=== PATIENT | male | born 1945 | race Caucasian/White ===

== ENCOUNTER → 2018-02-28 10:42 | Outpatient (CLI) | payer MEDICARE, SELFPAY ==
[2018-02-28 12:10] LABS: Creatinine,Serum 2.87 mg/dL (0.70-1.30)
[2018-02-28 12:13] LABS: Creatinine,Urine Random 73 mg/dL (20-320)
[2018-02-28 12:45] LABS: Collection Time,Urine 24 hours; Creatinine 24 Hour,Urine 1825 mg/24hr (630-2500); Total Volume,Urine 2500 mL (250-2400)
[2018-02-28 12:46] LABS: Creatinine Clearance Urine 44.2 mL/min (85-125)
== END ==
PROVIDERS: Family Provider Internal Medicine Adolescent Medicine; Visit Provider Internal Medicine Adolescent Medicine
DX: N28.9 Disorder of kidney and ureter, unspecified (principal)
CPT/HCPCS: 36415; 82575

== ENCOUNTER → 2020-11-01 09:50 | Outpatient (CLI) | payer MEDICARE, SELFPAY ==
--- NOTE | 2020-11-01 10:03 | CA_ITS ---
APPROVED REPORT EXAM: Comprehensive 2D, Doppler, and color-flow Echocardiogram Yarn Conditioner: An Carmona CRT Ht: 6 ft 0 in Wt: 220lbs BSA: 2.22 BP: 120/82 mmHg Indications: Shortness of Breath, Obesity, Hyperlipidemia, Hypertension/HDD 2D Dimensions LVOT 2.01 cm (M/F) 1.5-2.5 M-Mode Dimensions RVDd 2.81 cm (0.9-2.6) LA Diam 3.71 cm (1.9-4.0) LVDd 4.73 cm (3.5-5.7) Ao Diam 3.47 cm (2.0-3.7) LVDs 2.41 cm (3.5-5.7) IVSd 1.81 cm (0.6-1.1) PWd 0.96 cm (0.6-1.1) EF (Teich) 80.40% FS 49.00% EDV (Teich) 103.90 mL ESV (Teich) 20.40 mL LV Diastology E Decel Time 150.00 (160-240 msec) E/A Ratio 0.62 MED E' 5.40 (< 7 cm/sec) MED A' 8.90 cm/s E'/MED E' Ratio 10.63 (>14) LAT E' 7.40 (<10 cm/sec) LAT A' 11.90 cm/s E/LAT E' Ratio 7.76 (>14) Aortic Valve LVOT Max 140.00 (70-110 cm/s) LVOT VTI 26.86 cm AoV Peak Martinez. 262.00 (50-130 cm/s) AO Peak GR. 27.50 mmHg AO Mean GR. 13.90 (<5 mmHg) AO VTI 58.31 (18-25 cm) JUNG (VTI) 1.46 (2.5-4.5 cm2) Mitral Valve MV E Max Martinez. 57.00 (40-130 cm/s) MV A Velocity 92.00 (40-130 cm/s) E/A Ratio 0.62 MV Decel. Time 150.00 (160-240 ms) MV PHT 44.00 ms Tricuspid Valve TR P. Velocity 247.00 cm/s Left Ventricle Left atrium is mildly enlarged, left ventricle is normal size, mild concentric left ventricular hypertrophy, visually estimated ejection fraction 55% with no regional wall motion abnormality, diastolic parameters are inconclusive. Right Ventricle Right atrium and right ventricle are normal size and contractility. Aortic Valve Aortic valve is thickened and calcified with mean gradient across valve of 17 mmHg, valve area 1.5 cm by represents mild aortic stenosis, there is no aortic insufficiency. Mitral Valve Mitral valve is grossly normal, there is mild mitral regurgitation. Tricuspid Valve Tricuspid valve grossly normal, there is mild tricuspid regurgitation, tricuspid regurgitation jet velocity is inadequate for calculation of the right ventricular systolic pressure. Pulmonic Valve Pulmonic valve is poorly visualized. Great Vessels Aortic root is normal size. Pericardium No significant pericardial effusion noted. Conclusion 1. Mildly enlarged left atrium, normal left ventricular size, mild concentric left ventricular hypertrophy, visually estimated ejection fraction 55% with no regional wall motion abnormality, diastolic parameters are inconclusive. 2. Thickened and calcified aortic valve with mean gradient across valve of 17 mmHg, valve area 1.5 cm??? represents mild aortic stenosis, there is no significant aortic insufficiency. 3. Mild mitral and tricuspid regurgitation. 4. No significant pericardial effusion noted. Electronically signed by : Ramy Quintanilla, 11/02/2020 06:55:40
== END ==
PROVIDERS: PCP Internal Medicine Adolescent Medicine; Visit Provider Internal Medicine Adolescent Medicine
DX: I50.22 Chronic systolic (congestive) heart failure (principal)
CPT/HCPCS: 93306

== ENCOUNTER → 2021-02-28 10:59 | Outpatient (CLI) | payer MEDICARE, SELFPAY ==
[2021-02-28 11:23] LABS: Basophils # 0.1 K/mm3 (0-0.2); Basophils % 1.2 % (0.1-2.0); Eosinophils # 0.4 K/mm3 (0.0-0.4); Eosinophils % 4.2 % (0.1-12.0); Hematocrit 49.6 % (42.0-52.0); Hemoglobin 14.9 g/dL (14.1-18.0); Lymphocytes # 1.4 K/mm3 (0.7-4.5); Lymphocytes % 14.3 % (10-50); Mean Corpuscular HGB Conc 30.1 g/dL (31.8-35.4); Mean Corpuscular Hemoglobin 29.8 pg (27.0-31.2); Mean Platelet Volume 8.9 fl (7.4-10.4); Monocytes # 0.7 K/mm3 (0.1-1.0); Neutrophils # 7.2 K/mm3 (1.8-7.8); Neutrophils % 73.2 % (37.0-80.0); Platelet Count 275 K/mm3 (142-424); Red Blood Count 5.02 M/mm3 (4.60-6.20); Red Cell Distribution Width 13.5 % (11.5-17.5); White Blood Count 9.8 K/mm3 (4.8-10.8)
[2021-02-28 11:35] LABS: Hemoglobin A1C 7.7 % (4.0-6.0)
[2021-02-28 11:40] LABS: Chloride 97 mmol/L (98-107)
[2021-02-28 11:41] LABS: Potassium 4.7 mmoL/L (3.5-5.1); Sodium 139 mmol/L (136-145)
[2021-02-28 11:43] LABS: Alanine Aminotransferase 74 U/L (12-78); Albumin Level 3.7 g/dl (3.5-5.0); Albumin/Globulin Ratio 1.3 (1.1-1.8); Alkaline Phosphatase 449 U/L (38-126); Anion Gap 13.7 mEq/L (5-15); Aspartate Amino Transferase 91 U/L (17-59); Bilirubin,Total 0.6 mg/dl (0.2-1.3); Blood Urea Nitrogen 33 mg/dl (9-20); Carbon Dioxide 33 mmol/L (22.0-30.0); Cholesterol 162 mg/dl (140-200); Estimated Glomerular Filt Rate 43 ml/min (>60); GFR (African American) 52 ML/MIN (>60); Globulin 2.8 g/dL (1.3-3.2); Total Protein,Serum 6.5 g/dl (6.3-8.2); Triglycerides 165 mg/dl (30-150); VLDL Cholesterol 33 mg/dL (0-40)
[2021-02-28 11:44] LABS: Calcium 9.8 mg/dl (8.4-10.2); Chol/HDL Ratio 3.1 (1-3.5); Glucose 88 mg/dl (74-100); HDL Cholesterol 53 mg/dl (40-60)
[2021-02-28 11:55] LABS: Direct LDL Cholesterol 77.32 mg/dL (100-129)
== END ==
PROVIDERS: Visit Provider Internal Medicine Adolescent Medicine
DX: I50.22 Chronic systolic (congestive) heart failure (principal); E78.5 Hyperlipidemia, unspecified; E11.9 Type 2 diabetes mellitus without complications; Z79.4 Long term (current) use of insulin
CPT/HCPCS: 36415; 80053; 80061; 83036; 85025

== ENCOUNTER 2021-03-15 12:23 | Observation (INO) | payer MEDICARE, SELFPAY ==
--- NOTE | 2021-03-15 | US_ITS ---
APPROVED REPORT Exam Type: Ankle to Brachial Index Mobile Ui Developer: AG/ROBIN Indications Micro-embolic event Non-healing Ulcer: Right Cyanosis History of Smoking Pre Right leg Intervention 03/16/21 Risk Factors History of PAD: Right Hypertension Hyperlipidemia Diabetes Pressures/Indices Right Indices Left Indices Brachial 142.00 mmHg Brachial 142.00 mmHg Low Thigh 139.00 mmHg 0.98 Low Thigh 145.00 mmHg 1.02 Calf 213.00 mmHg 1.50 Calf 154.00 mmHg 1.08 Ankle(PT) 88.00 mmHg 0.62 Ankle(PT) 150.00 mmHg 1.06 Ankle(DP) 83.00 mmHg 0.58 Ankle(DP) 138.00 mmHg 0.97 Digit 54.00 mmHg 0.38 Digit 155.00 mmHg 1.09 Findings RT SHANICE=0.62 LT SHANICE=1.06 RT TPI=0.38 LT TPI=1.09 Abnormal Right toe and Right calf pressures Conclusion RT SHANICE=0.62 LT SHANICE=1.06 RT TPI=0.38 LT TPI=1.09 Abnormal Right toe and Right calf pressures Moderate arterial disease on the right Electronically signed by : Piter Uribe MD 03/15/2021 17:40:49
[2021-03-15 12:50] VITALS: BMI 27.6
[2021-03-15 12:53] VITALS: BP 163/77; PULSE 66; RESP 16; TEMP 36.6; O2SAT 90
--- NOTE | 2021-03-15 12:59 | HMH.PNCARD ---
Subjective Date: 03/15/21 Time: 12:59 Principal diagnosis: PAD, non-healing ulcer Interval history: 75-year-old white male seen as a new patient in the office today with complaint of discolored fifth toe of the right foot and painful fourth toe. Patient does have an blister/ulcer on the bottom of the fifth toe. Pulses in the right foot are extremely weak compared with the bounding pulses of the left foot. Discussion was undertaken with the patient and Dr. Mata for admission with plans for lower extremity runoff in the a.m. Everyone is in agreement. Patient will be started on IV heparin along with IV and p.o. pain medication as needed. He will also need IV fluids due to mildly elevated creatinine at 1.6. Echocardiogram October this year shows normal ejection fraction with mild aortic stenosis with aortic valve area of 1.5 cm?. Exam Vital signs and Labs for Last 24 Hours: Temp Pulse Resp BP Pulse Ox 97.8 F 66 16 163/77 H 90 L 03/15/21 12:53 03/15/21 12:53 03/15/21 12:53 03/15/21 12:53 03/15/21 12:53 I & O for Last 24 hours: Intake & Output 03/13/21 03/14/21 03/15/21 03/16/21 11:59 11:59 11:59 11:59 Weight 204 lb 2 oz - Constitutional no acute distress - *Routine Respiratory Exam Present: CTA bilaterally - *Routine Cardiovascular Exam Present: RRR, murmur - *Routine Extremities Exam Absent: cyanosis, clubbing, edema Comments: Right foot cooler than left with decreased pulses compared to left. Right fifth toe is blue in color with nonhealing blister on the bottom of the foot. Painful to touch the right fourth toe with early ulcer noted. - *Routine Neurological Exam Present: alert, oriented X3 Progress Note: A&P (1) PAD (peripheral artery disease) Status: Chronic (2) Nonhealing ulcer of right lower extremity Status: Acute (3) Decreased pedal pulses Status: Acute (4) Diabetes mellitus Status: Acute (5) Discoloration of skin Status: Acute (6) HLD (hyperlipidemia) Status: Acute (7) HTN (hypertension) Status: Acute (8) Mild aortic stenosis by prior echocardiogram Status: Acute Assessment and Plan for All Diagnoses:: 1. Admission for PAD nonhealing ulcer with plans for lower extremity angiogram tomorrow. We will start the patient on IV fluids, IV heparin and combination of p.o. and IV pain medication as needed. Continue home medications of carvedilol, lisinopril and verapamil. Adjust medications as needed. 2. Diabetes mellitus, per Dr. Mata 3. Hypertension, controlled 4. Hyperlipidemia, on statin therapy 5. Mild aortic stenosis, asymptomatic
[2021-03-15 13:00] VITALS: PULSE 66; RESP 16; O2SAT 90
--- NOTE | 2021-03-15 13:02 | P.CONPHA_ITS ---
[facility] Pharmacy Heparin Dosing - Demographic Data Admission date:: 03/15/21 Date: 03/15/21 Time: 13:03 Allergies/Adverse Reactions: Allergies Allergy/AdvReac Type Severity Reaction Status Date / Time guaifenesin [From MUCINEX] Allergy Mild RASH ON Verified 03/15/21 13:06 BLE; PT STATES ROBITUSSIN IS FINE Height: 1.83 m Weight: 92.5 kg - Indication Medication therapy:: Heparin Patient Problems: Current Active Problems Mild aortic stenosis by prior echocardiogram (Acute) CKD (chronic kidney disease) stage 3, GFR 30-59 ml/min (Chronic) PAD (peripheral artery disease) (Chronic) Decreased pedal pulses (Acute) Diabetes mellitus (Acute) HTN (hypertension) (Acute) HLD (hyperlipidemia) (Acute) Discoloration of skin (Acute) Nonhealing ulcer of right lower extremity (Acute) CVA?: No Bleeding problem?: No Kidney disease?: No ND?: No Desired PTT range:: 50-70 seconds - Monitoring Dose Monitor 1 Date: 03/15/21 Time: 14:13 PTT Result:: 26.2 Infusion Rate:: 1,300 UNITS/HR Comment:: 7,000 UNIT BOLUS Dose Monitor 2 Date: 03/15/21 Time: 21:00 PTT Result:: 48.7 Infusion Rate:: INCREASE TO 1,500 UNIS/HR Comment:: 3,000 UNIT BOLUS Dose Monitor 3 Date: 03/16/21 Time: 03:00 PTT Result:: 81.4 Infusion Rate:: DECREASE TO 1,400 UNITS/HR Dose Monitor 4 Date: 03/16/21 Time: 09:00 PTT Result:: 65.7 Infusion Rate:: 1,400 UNITS/HR Comment:: [id number] Dose Monitor 5 Date: 03/16/21 Time: 15:00 Comment:: HEPARIN DRIP STOPPED BY CARDIOLOGY - Core Measures Is INR > or = 2 at discharge?: No Were Heparin and Warfarin started on the same day?: No If not, why?: HEPARIN DRIP STOPPED. PLAVIX AND ASPIRIN STARTED.
[2021-03-15 14:27] LABS: Adenovirus,PCR Not Detected (NotDetected); Bordetella Pertussis Not Detected (NotDetected); Chlamydophila Pneumoniae, PCR Not Detected (NotDetected); Coronavirus 19, PCR Not Detected (NotDetected); Coronavirus 229E Not Detected (NotDetected); Coronavirus NL63 Not Detected (NotDetected); Coronavirus OC43 Not Detected (NotDetected); Coronovirus HKU1,PCR Not Detected (NotDetected); Human Metapneumovirus Not Detected (NotDetected); Influenza A, PCR Not Detected (NotDetected); Influenza AH1, 2009 Not Detected (NotDetected); Influenza AH1, PCR Not Detected (NotDetected); Influenza AH3,PCR Not Detected (NotDetected); Influenza B, PCR Not Detected (NotDetected); Mycoplasma Pneumoniae, PCR Not Detected (NotDetected); Parainfluenza 1, PCR Not Detected (NotDetected); Parainfluenza 2, PCR Not Detected (NotDetected); Parainfluenza 3, PCR Not Detected (NotDetected); Parainfluenza 4, PCR Not Detected (NotDetected); Respiratory Syncytial Virus Not Detected (NotDetected); Rhinovirus/Enterovirus Not Detected (NotDetected)
--- NOTE | 2021-03-15 14:31 | P.CONPHA_ITS ---
[facility] Pharmacy VTE Monitoring - Patient Demographics Admission date: 03/15/21 Report Date: 03/15/21 Time: 14:31 Allergies/Adverse Reactions: Patient Allergies guaifenesin [From MUCINEX] Allergy (Mild, Verified 03/15/21 13:06) RASH ON BLE; PT STATES ROBITUSSIN IS FINE Height: 1.83 m Weight: 92.5 kg Patient Problems: Current Active Problems Mild aortic stenosis by prior echocardiogram (Acute) PAD (peripheral artery disease) (Chronic) Decreased pedal pulses (Acute) Diabetes mellitus (Acute) HTN (hypertension) (Acute) HLD (hyperlipidemia) (Acute) Discoloration of skin (Acute) Nonhealing ulcer of right lower extremity (Acute) - VTE Risk Was VTE Risk Assessment Performed: Yes VTE Score: 4 VTE Risk Level: Low Risk - Prophylaxis Types of VTE Prophylaxis: Pharmacological Location of Applied Device: Not Applicable Pharmacologic Type: Heparin (HEPARIN DRIP STARTED ON ADMISSION FOR PAD.)
[2021-03-15 14:39] LABS: Activated Partial Thrombo Time 26.2 seconds (22.8-30.6)
[2021-03-15 15:41] VITALS: BP 133/66; PULSE 58; RESP 16; TEMP 36.8; O2SAT 93
--- NOTE | 2021-03-15 17:45 | PC.NURSE ---
Pt has been pleasant and cooperative this shift. A&O X4. No complaints of pain. Pt is on room air with sats. >90%. Lungs CTA. No edema noted. Skin is C/D/I. RT foot pedal pulse noted to be diminished, but palpable. Pt ambulates independently to/from the bathroom and throughout the room. Pt has sat up in the chair for several hours. Urine is clear and yellow. No BM today. Appetite is good and pt eats the majority of every meal. 20 G peripheral IV in the RT wrist is patent and infusing NS @ 75 ML/HR + Heparin @ 1300 U/HR. VSS. Call light within reach. Will continue to monitor.
--- NOTE | 2021-03-15 18:24 | HMH.HP ---
*Admission Date: 03/15/21 *Chief complaint: cool painful foot/toe *History of present illness: 75 y/o male with 14 days of pain in his right small toe. Seen in our office today due to concern from the patient that he was having a gout flare with toe pain. He describes a throbbing pain in the tip of his small toe with occasional shooting pain every few minutes. The toe has turned purple and the pain is worsening. The pain keeps him from sleeping at night and he describes it as the worst pain he has ever felt. He also describes the arch of his foot as uncomfortable but not painful or numb. Pt is not aware of ever taking colchicine for his gout flares or for this recent episode of pain. He has been taking norco without relief. Denies claudication symptoms. Denies history of blood clots or recent cardiac procedures. Smoked 1.5 ppd previously but quit 10-15 years ago. Mr. Crowder was sent to cardiology office from our office. Concern for weak pulses in foot and ischemic toe. Cardiology recommended inpatient management and initiation of heparin drip. Patient admitted overnight with plan for runoff study of right lower extremity tomorrow. Of note echocardiogram obtained in October shows normal EF with mild aortic stenosis, aortic valve area of 1.5 cm?. Patient denies any chest pain, nausea, vomiting. Does complain of constipation. No fever, cough, shortness of breath. No pain in left leg or foot. [facility] History I have reviewed the patient's past medical history: Yes Medical History: Reports:: Congestive Heart Failure, Diabetes Mellitus Type 2, Hyperlipidemia, Hypertension, Lung Disease Denies:: Cancer, Diabetes Mellitus Type 1, Internal Pacemaker, MRSA, Seizures *Have you ever received a pneumonia vaccine?: Yes *Have you received a flu vaccine this season?: Yes Other Medical History: Denies: Blood Transfusion Reaction Laterality Cases: Bilateral: Tonsillectomy Other Surgeries: No: Pacemaker Amputation: No Fractures: No - *Social History Last grade of school completed: High school graduate Smoking Status: Former smoker Tobacco Type: cigarettes Smoking End Date: 2004 Alcohol Intake: never *Occupational Status:: retired Housing: house Household Members: spouse *Travel in the last 8 weeks: None Family Hx:: Heart Attack Review of Systems - Review of Systems Review of systems:: pertinent systems reviewed and negative unless documented below (14 point review of systems performed, pertinent positives and negatives as per HPI) Meds Home Medications Medication Instructions Recorded Confirmed Type Empagliflozin [Jardiance] 25 mg PO DAILY 01/07/19 03/15/21 History Furosemide [Lasix 40mg tab] 40 mg PO DAILY 01/07/19 03/15/21 History Glimepiride [Amaryl] 2 mg PO DAILY 01/07/19 03/15/21 History Insulin Degludec [Tresiba] 10 - 20 unit SQ DAILY 01/07/19 03/15/21 History Pravastatin Sodium 80 mg PO HS 01/07/19 03/15/21 History allopurinoL [Allopurinol 300mg 300 mg PO DAILY 01/07/19 03/15/21 History tablet] Cholecalciferol (Vitamin D3) 1,000 unit PO DAILY 03/15/21 03/15/21 History [Vitamin D3 1,000 Unit Cap] Colchicine 0.6 mg PO TIDP PRN 03/15/21 03/15/21 History Hydrocod/Acet 5/325 mg [Tamms 1 tab PO Q6HP PRN 03/15/21 03/15/21 History 5/325mg tablet] NIFEdipine [Nifedipine ER] 60 mg PO DAILY 03/15/21 03/15/21 History Sennosides/Docusate Sodium 2 each PO BIDP PRN 03/15/21 03/15/21 History [Senokot-S Tablet] Vitamin E 200 unit PO DAILY 03/15/21 03/15/21 History carvediloL [Carvedilol 6.25mg Tab] 6.25 mg PO BID 03/15/21 03/15/21 History lisinopriL [Lisinopril] 40 mg PO BID 03/15/21 03/15/21 History polyethylene glycoL 3350 [Miralax 17 gm PO BID 03/15/21 03/15/21 History Powder] Allergies Allergy/AdvReac Type Severity Reaction Status Date / Time guaifenesin [From MUCINEX] Allergy Mild RASH ON Verified 03/15/21 13:06 BLE; PT STATES ROBITUSSIN IS FINE Exam Vital signs and Labs for Las
[2021-03-15 20:00] VITALS: BP 123/65; PULSE 63; RESP 17; TEMP 36.7; O2SAT 90
[2021-03-15 22:14] LABS: Basophils % 0.5 % (0.1-2.0); Eosinophils # 0.4 K/mm3 (0.0-0.4); Eosinophils % 3.6 % (0.1-12.0); Hemoglobin 12.2 g/dL (14.1-18.0); Lymphocytes # 1.4 K/mm3 (0.7-4.5); Lymphocytes % 14.7 % (10-50); Mean Corpuscular HGB Conc 31.3 g/dL (31.8-35.4); Mean Corpuscular Hemoglobin 29.8 pg (27.0-31.2); Mean Corpuscular Volume 95.1 fl (80-94); Mean Platelet Volume 9.2 fl (7.4-10.4); Monocytes # 0.7 K/mm3 (0.1-1.0); Monocytes % 7.3 % (1.7-9.3); Neutrophils # 7.1 K/mm3 (1.8-7.8); Platelet Count 201 K/mm3 (142-424); Red Cell Distribution Width 13.8 % (11.5-17.5); White Blood Count 9.6 K/mm3 (4.8-10.8)
[2021-03-15 22:18] LABS: Alanine Aminotransferase 33 U/L (12-78); Albumin Level 2.8 g/dl (3.5-5.0); Albumin/Globulin Ratio 1.1 (1.1-1.8); Alkaline Phosphatase 687 U/L (38-126); Anion Gap 6.1 mEq/L (5-15); Aspartate Amino Transferase 68 U/L (17-59); Bilirubin,Total 0.4 mg/dl (0.2-1.3); Blood Urea Nitrogen 41 mg/dl (9-20); Calcium 8.1 mg/dl (8.4-10.2); Carbon Dioxide 32 mmol/L (22.0-30.0); Chloride 100 mmol/L (98-107); Creatinine Clearance Estimated 48 mL/min (50-200); Estimated Glomerular Filt Rate 37 ml/min (>60); GFR (African American) 45 ML/MIN (>60); Globulin 2.6 g/dL (1.3-3.2); Glucose 153 mg/dl (74-100); Potassium 4.1 mmoL/L (3.5-5.1); Sodium 134 mmol/L (136-145); Total Protein,Serum 5.4 g/dl (6.3-8.2)
[2021-03-15 22:23] LABS: Activated Partial Thrombo Time 48.7 seconds (22.8-30.6)
--- NOTE | 2021-03-15 23:07 | PC.NURSE ---
received call from [employer] watch, new orders received and carried out.
[2021-03-16] VITALS (25 sets, daily range): BP systolic 119–170; BP diastolic 53–109; PULSE 48–64; RESP 12–20; TEMP 36.3–36.7; O2SAT 90–100; BMI 27.5
--- NOTE | 2021-03-16 | IR_ITS ---
APPROVED REPORT Patient Location: Inpatient [facility] Channeler: NYDIA Blair RT (R) PROCEDURES Left femoral arterial access Catheter placement in the right common femoral artery Right common femoral artery antegrade angiogram with unilateral runoff to the right foot Stent deployment to the right popliteal artery Catheter placement in the right popliteal artery Right popliteal artery antegrade angiogram INDICATION Armen claudication class V, Poorly healing cyanotic and ulcerated right lower extremity digits, Peripheral artery disease, Subtotal occlusion of the right popliteal artery Informed consent was obtained prior to the procedure. COMPLICATIONS None Estimated Blood Loss: Less than 10 mls TECHNIQUE 1% lidocaine used to anesthetize the left femoral groin. The left femoral artery was accessed via the Seldinger technique. A 5 Malaysian sheath was placed in the right femoral artery and under fluoroscopic guidance a rim catheter was advanced into the distal abdominal aorta. An advantage wire was then placed into the right superficial femoral artery under fluoroscopic guidance and the rim catheter was advanced to the right common femoral artery where unilateral runoff was performed. Following this the rim catheter was removed and the 5 Malaysian sheath was exchanged for a 6 Malaysian destination sheath. Therapeutic heparin was administered giving a therapeutic ACT. A trailblazer was required to negotiate the wire through the subtotal occlusion. A 4 mm x 40 mm balloon was deployed to predilate the stenosis. Following this a 5 mm x 80 mm self-expanding stent was placed in the popliteal artery. A 5 mm x 40 mm balloon was then deployed multiple times to post dilate however the dense calcification prohibited full expansion of the stent. A 6 mm x 20 mm balloon was then deployed up to 24 janie in the heavily and densely calcified area which would not allow the stent to be fully deployed. A 7 mm x 20 mm balloon was then placed in the stenotic area within the popliteal artery and deployed size 22 janie. This did provide better expansion of the porcelain/densely calcified vessel and provided excellent inline flow with three-vessel runoff distally. After achieving satisfactory angiographic results it was felt any further dilatation of this vessel would almost certainly create rupture and thereby create a severe complication. With excellent inline flow into the distal vessels the apparatus was removed the groin was reprepped closure changed sheath was removed good hemostasis was achieved using Perclose device patient was transferred to the postop putting in stable condition ANGIOGRAPHIC RESULTS The right common femoral artery is densely calcified with 50% eccentric stenosis. The right profunda femoris artery is widely patent. The right superficial femoral artery is widely patent in the proximal segment with mild to moderate mid vessel calcifications creating 30 to 40% Bryson's canal. The right popliteal artery is a large-caliber vessel and severely densely calcified at the pregeniculate level creating subtotal occlusion. Three-vessel runoff is present below the right popliteal artery with 50% stenosis in the proximal anterior tibialis artery and diffuse moderate plaque throughout all 3 vessels IMPRESSION Subtotal occlusion of the right popliteal artery which is severely and densely calcified Successful percutaneous revascularization of the right popliteal artery critical limb threatening disease reduced to 10 to 20% with 1 self-expanding stent Persistent moderate and densely calcified right common femoral artery stenosis PLAN 1. Aspirin and Plavix 2. LDL less than 55 3. Physical therapy
--- NOTE | 2021-03-16 02:12 | PC.NURSE ---
at 2029 patient complaining that right foot is beginning to hurt again, pain medication not due until 0000. dr. castro paged for additional pain medication. patient only wanted to take 1 pill at that 4 hr corrie, 1 hour later patient complained that pain medication had not worked, additional tab of ordered 2 tabs given. patient currently resting.
[2021-03-16 03:37] LABS: Alanine Aminotransferase 36 U/L (12-78); Albumin/Globulin Ratio 1.1 (1.1-1.8); Alkaline Phosphatase 720 U/L (38-126); Anion Gap 7.3 mEq/L (5-15); Aspartate Amino Transferase 61 U/L (17-59); Bilirubin,Total 0.6 mg/dl (0.2-1.3); Blood Urea Nitrogen 40 mg/dl (9-20); Calcium 8.4 mg/dl (8.4-10.2); Carbon Dioxide 31 mmol/L (22.0-30.0); Chloride 101 mmol/L (98-107); Creatinine Clearance Estimated 51 mL/min (50-200); Estimated Glomerular Filt Rate 40 ml/min (>60); GFR (African American) 48 ML/MIN (>60); Globulin 2.8 g/dL (1.3-3.2); Glucose 87 mg/dl (74-100); Potassium 4.3 mmoL/L (3.5-5.1); Sodium 135 mmol/L (136-145); Total Protein,Serum 5.8 g/dl (6.3-8.2)
[2021-03-16 03:41] LABS: C-Reactive Protein 103.5 mg/L (0-4)
[2021-03-16 03:55] LABS: Activated Partial Thrombo Time 81.4 seconds (22.8-30.6)
[2021-03-16 04:04] LABS: Erythrocyte Sedimentation Rate 36 mm/hr (0-20)
--- NOTE | 2021-03-16 04:22 | PC.NURSE ---
gave two lortabs at 0300, patient continues to have pain that he states he can't take. right little toe darker in color with tip black, warm to touch. pulses continue to be thready. matthew hankins paged, new orders received.
[2021-03-16 06:36] LABS: POC Glucose,Bedside 80 (70-110)
--- NOTE | 2021-03-16 07:22 | XR_ITS ---
PROCEDURE: XR FOOT RT MIN 3V CLINICAL INDICATION: R 5th toe ischemic COMPARISON: XA CL BOLUS EMERITA UNILAT AORTA from 03/16/2021 FINDINGS: No acute fracture or dislocation. Focal decreased density is present involving the distal aspect of the distal phalanges of the 4th and 5th toes. There is generalized vascular calcification and a small Achilles enthesophyte. The joint spaces are well-preserved. No significant degenerative/arthritic changes. No erosive changes evident. Other findings:None. IMPRESSION: Decreased density of the tuft of the distal phalanx of the 4th and 5th toes. This is of uncertain clinical significance. Focal osteopenia can be seen with osteomyelitis. No definite cortical destruction is evident however, the bony resolution is somewhat limited. If there is suspicion for osteomyelitis then would suggest dedicated toe x-ray for further evaluation. MRI without and with contrast may also be beneficial if clinically warranted. Dictated by: Piter Uribe MD 03/16/2021 08:44 Piter Uribe MD in [place] 03/16/2021 08:44
[2021-03-16 08:15] LABS: Basophils # 0.1 K/mm3 (0-0.2); Basophils % 0.7 % (0.1-2.0); Eosinophils # 0.5 K/mm3 (0.0-0.4); Hematocrit 40.3 % (42.0-52.0); Hemoglobin 12.4 g/dL (14.1-18.0); Lymphocytes # 1.2 K/mm3 (0.7-4.5); Lymphocytes % 13.6 % (10-50); Mean Corpuscular HGB Conc 30.8 g/dL (31.8-35.4); Mean Corpuscular Hemoglobin 29.5 pg (27.0-31.2); Mean Corpuscular Volume 95.8 fl (80-94); Mean Platelet Volume 9.9 fl (7.4-10.4); Monocytes # 0.7 K/mm3 (0.1-1.0); Monocytes % 7.4 % (1.7-9.3); Neutrophils # 6.4 K/mm3 (1.8-7.8); Neutrophils % 72.3 % (37.0-80.0); Platelet Count 221 K/mm3 (142-424); White Blood Count 8.8 K/mm3 (4.8-10.8)
--- NOTE | 2021-03-16 08:22 | HMH.ACPN2 ---
Internal Medicine - PN: Subj *Date: 03/16/21 *Time: 08:22 Interval history: Patient notes that he feels a little bit better although occasionally his right pain in the foot is significant and excruciating. Exam Vital signs and Labs for Last 24 Hours: Temp Pulse Resp BP Pulse Ox 97.9 F 55 L 20 143/57 H 91 L 03/16/21 08:00 03/16/21 08:00 03/16/21 08:00 03/16/21 08:00 03/16/21 08:00 Laboratory Results - last 24 hr 03/15/21 12:14: Chlamy pneumoniae PCR Not detected, Adenovirus (PCR) Not detected, B. pertussis DNA (PCR) Not detected, Coronavirus OC43 (PCR) Not detected, Coronavirus HKU1 (PCR) Not detected, Coronavirus 229E (PCR) Not detected, SARS-CoV-2 (PCR) Not detected, Coronavirus NL63 (PCR) Not detected, Human Metapneumovir PCR Not detected, Influenza A (H1) PCR Not detected, Influ A (H1N1/09) PCR Not detected, Influenza A (H3) PCR Not detected, Influenza Type A (PCR) Not detected, Influenza Type B (PCR) Not detected, M. pneumoniae (PCR) Not detected, Parainfluenza 1 (PCR) Not detected, Parainfluenza 2 (PCR) Not detected, Parainfluenza 3 (PCR) Not detected, Parainfluenza 4 (PCR) Not detected, RSV (PCR) Not detected, Entero/Rhino (PCR) Not detected 03/15/21 14:13: APTT 26.2 03/15/21 21:37: APTT 48.7 H D 03/15/21 21:37: WBC 9.6, RBC 4.10 L, Hgb 12.2 L, Hct 39.0 L, MCV 95.1 H, MCH 29.8, MCHC 31.3 L, RDW 13.8, Plt Count 201, MPV 9.2, Neut % (Auto) 74.0, Lymph % (Auto) 14.7, Bledsoe % (Auto) 7.3, Eos % (Auto) 3.6, Baso % (Auto) 0.5, Neut # (Auto) 7.1, Lymph # (Auto) 1.4, Bledsoe # (Auto) 0.7, Eos # (Auto) 0.4, Baso # (Auto) 0.0 03/15/21 21:37: Sodium 134 L, Potassium 4.1, Chloride 100, Carbon Dioxide 32 H, Anion Gap 6.1, BUN 41 H, Creatinine 1.80 H, Estimated Creat Clear 48, Estimated GFR 37 L, Est GFR ( Amer) 45 L, Glucose 153 H, Calcium 8.1 L, Total Bilirubin 0.4, AST 68 H, ALT 33, Alkaline Phosphatase 687 H, Total Protein 5.4 L, Albumin 2.8 L, Globulin 2.6, Albumin/Globulin Ratio 1.1 03/16/21 03:10: APTT 81.4 H* D 03/16/21 03:10: ESR 36 H 03/16/21 03:10: C-Reactive Protein 103.5 H 03/16/21 03:10: Sodium 135 L, Potassium 4.3, Chloride 101, Carbon Dioxide 31 H, Anion Gap 7.3, BUN 40 H, Creatinine 1.70 H, Estimated Creat Clear 51, Estimated GFR 40 L, Est GFR ( Amer) 48 L, Glucose 87 D, Calcium 8.4, Total Bilirubin 0.6, AST 61 H, ALT 36, Alkaline Phosphatase 720 H, Total Protein 5.8 L, Albumin 3.0 L, Globulin 2.8, Albumin/Globulin Ratio 1.1 03/16/21 06:27: POC Glucose 80 03/16/21 08:05: WBC 8.8, RBC 4.20 L, Hgb 12.4 L, Hct 40.3 L, MCV 95.8 H, MCH 29.5, MCHC 30.8 L, RDW 14.0, Plt Count 221, MPV 9.9, Neut % (Auto) 72.3, Lymph % (Auto) 13.6, Bledsoe % (Auto) 7.4, Eos % (Auto) 6.0, Baso % (Auto) 0.7, Neut # (Auto) 6.4, Lymph # (Auto) 1.2, Bledsoe # (Auto) 0.7, Eos # (Auto) 0.5 H, Baso # (Auto) 0.1 I & O for Last 24 hours: Intake & Output 03/13/21 03/14/21 03/15/21 03/16/21 11:59 11:59 11:59 11:59 Intake Total 2549 / 2549 Output Total 450 / 450 Balance 2098 Weight 203 lb 2 oz Narrative: Patient is alert, pleasant. Alert, oriented. Lungs have good air movement, heart rate regular. Abdomen soft, Right foot has no pulses on the dorsum except detectable by Doppler. Right pinky toe is purple, extremely tender and cold. No skin rash otherwise. Neurologically intact. Oropharynx clear. Assessment and Plan (1) PAD (peripheral artery disease) Status: Chronic Category: Medical Code(s): I73.9 - Peripheral vascular disease, unspecified (2) Nonhealing ulcer of right lower extremity Status: Acute Qualifiers: Non-pressure ulcer stage: unspecified non-pressure ulcer stage Qualified Code(s): L97.919 - Non-pressure chronic ulcer of unspecified part of right lower leg with unspecified severity Category: Medical Code(s): L97.919 - Non-pressure chronic ulcer of unspecified part of right lower leg with unspecified severity (3) Decreased pedal pulses Status: Acute Category: Medical Code(s
[2021-03-16 08:29] LABS: Activated Partial Thrombo Time 65.7 seconds (22.8-30.6)
--- NOTE | 2021-03-16 08:31 | HMH.ORTHOCON ---
*Admission Date: 03/15/21 <Kamilah Riggs - 03/16/21 08:48> *Reason for consult:: Right fifth ischemic toe <Kamilah Riggs - 03/16/21 08:48> *History of present illness: 75 y/o male with 14 days of pain in his right small toe. Seen in our office today due to concern from the patient that he was having a gout flare with toe pain. He describes a throbbing pain in the tip of his small toe with occasional shooting pain every few minutes. The toe has turned purple and the pain is worsening. The pain keeps him from sleeping at night and he describes it as the worst pain he has ever felt. He also describes the arch of his foot as uncomfortable but not painful or numb. Pt is not aware of ever taking colchicine for his gout flares or for this recent episode of pain. He has been taking norco without relief. Denies claudication symptoms. Denies history of blood clots or recent cardiac procedures. Smoked 1.5 ppd previously but quit 10-15 years ago. Mr. Crowder was sent to cardiology office from our office. Concern for weak pulses in foot and ischemic toe. Cardiology recommended inpatient management and initiation of heparin drip. Patient admitted overnight with plan for runoff study of right lower extremity tomorrow. Of note echocardiogram obtained in October shows normal EF with mild aortic stenosis, aortic valve area of 1.5 cm?. Patient denies any chest pain, nausea, vomiting. Does complain of constipation. No fever, cough, shortness of breath. No pain in left leg or foot. [facility] History I have reviewed the patient's past medical history: Yes Medical History: Reports:: Congestive Heart Failure, Diabetes Mellitus Type 2, Hyperlipidemia, Hypertension, Lung Disease Denies:: Cancer, Diabetes Mellitus Type 1, Internal Pacemaker, MRSA, Seizures *Have you ever received a pneumonia vaccine?: Yes *Have you received a flu vaccine this season?: Yes Other Medical History: Denies: Blood Transfusion Reaction Laterality Cases: Bilateral: Tonsillectomy Other Surgeries: No: Pacemaker Amputation: No Fractures: No - *Social History Last grade of school completed: High school graduate Smoking Status: Former smoker Tobacco Type: cigarettes Smoking End Date: 2004 Alcohol Intake: never *Occupational Status:: retired Housing: house Household Members: spouse *Travel in the last 8 weeks: None Family Hx:: Heart Attack Podiatry consult for Right foot ischemic toe. Patient states it is from a gout flare up. He denies any injuries or trauma to the toe. This has been going on now for 2 weeks. The toe is purple but no breaks noted in the skin. Pedal pulses B/L DP/PT were weakly palpable. Feet are cool, and pale in color. Patient has been NPO for the consult and is also scheduled for a runoff today at 10:00 am. The patient had Right foot xrays done and depending on if Osteomyelitis is present the patient was consented for a Right 5th toe amputation and Incision and Drainage of any non-viable soft tissue and bone, bone biopsies. <Kamilah Riggs 03/16/21 08:48> [facility] History I have reviewed the patient's past medical history: Yes <Leia Morocho - 03/16/21 15:56> Medical History: Reports:: Congestive Heart Failure, Diabetes Mellitus Type 2, Hyperlipidemia, Hypertension, Lung Disease Denies:: Cancer, Diabetes Mellitus Type 1, Internal Pacemaker, MRSA, Seizures <Kamilah Riggs 03/16/21 08:48> *Have you ever received a pneumonia vaccine?: Yes <Kamilah Riggs 03/16/21 08:48> *Have you received a flu vaccine this season?: Yes <Kamilah Riggs 03/16/21 08:48> Other Medical History: Denies: Blood Transfusion Reaction <Kamilah Riggs 03/16/21 08:48> Laterality Cases: Bilateral: Tonsillectomy <Kamilah Riggs 03/16/21 08:48> Other Surgeries: No: Pacemaker <Kamilah Riggs 03/16/21 08:48> Amputation: No <Kamilah Riggs 03/16/21 08:48> Fractures: No <Kamilah Riggs 03/16/21 08:48> - *Social History Last grade of school completed: High
--- NOTE | 2021-03-16 09:07 | HMH.PNCARD ---
Subjective Date: 03/16/21 Time: 09:00 Principal diagnosis: PAD, non-healing ulcer Interval history: 75-year-old male admitted to [facility] after being seen in cardiology office. Patient had complaints of discolored fifth toe of the right foot and painful fourth toe. Patient does have an blister/ulcer on the bottom of the fifth toe. Pulses in the right foot are extremely weak compared with the bounding pulses of the left foot. Podiatry has been consulted due to blister and ulcer on bottom of the fifth toe. Patient is scheduled for a bilateral lower extremity runoff this a.m. to determine extent of PAD. Discussed risk and benefits of undergoing bilateral lower extremity runoff with patient. Patient verbalized understanding and is agreeable to procedure. Patient was started on IV heparin along with IV and p.o. pain medication as needed. Creatinine level this a.m. was noted as 1.70 with a BUN 40. C-reactive protein was noted as elevated. Pending on the results of the bilateral lower extremity runoff, medication and therapy treatment changes may be recommended. Discussed plan of care with Dr. Hollins. Orders by Dr. Hollins. Patient is scheduled for a bilateral lower extremity runoff to determine extent of PAD. Podiatry was consulted due to blister and ulcer noted on the bottom of the fifth toe. Pending on the results of the bilateral lower extremity runoff, medication and changes to therapy treatments may be recommended. Please notify cardiology of any changes in patient status. Thank you for allowing cardiology to participate in the care of this patient. Exam Vital signs and Labs for Last 24 Hours: Temp Pulse Resp BP Pulse Ox 97.9 F 55 L 20 143/57 H 91 L 03/16/21 08:00 03/16/21 08:00 03/16/21 08:00 03/16/21 08:00 03/16/21 08:00 Laboratory Results - last 24 hr 03/15/21 12:14: Chlamy pneumoniae PCR Not detected, Adenovirus (PCR) Not detected, B. pertussis DNA (PCR) Not detected, Coronavirus OC43 (PCR) Not detected, Coronavirus HKU1 (PCR) Not detected, Coronavirus 229E (PCR) Not detected, SARS-CoV-2 (PCR) Not detected, Coronavirus NL63 (PCR) Not detected, Human Metapneumovir PCR Not detected, Influenza A (H1) PCR Not detected, Influ A (H1N1/09) PCR Not detected, Influenza A (H3) PCR Not detected, Influenza Type A (PCR) Not detected, Influenza Type B (PCR) Not detected, M. pneumoniae (PCR) Not detected, Parainfluenza 1 (PCR) Not detected, Parainfluenza 2 (PCR) Not detected, Parainfluenza 3 (PCR) Not detected, Parainfluenza 4 (PCR) Not detected, RSV (PCR) Not detected, Entero/Rhino (PCR) Not detected 03/15/21 14:13: APTT 26.2 03/15/21 21:37: APTT 48.7 H D 03/15/21 21:37: WBC 9.6, RBC 4.10 L, Hgb 12.2 L, Hct 39.0 L, MCV 95.1 H, MCH 29.8, MCHC 31.3 L, RDW 13.8, Plt Count 201, MPV 9.2, Neut % (Auto) 74.0, Lymph % (Auto) 14.7, [place] % (Auto) 7.3, Eos % (Auto) 3.6, Baso % (Auto) 0.5, Neut # (Auto) 7.1, Lymph # (Auto) 1.4, [place] # (Auto) 0.7, Eos # (Auto) 0.4, Baso # (Auto) 0.0 03/15/21 21:37: Sodium 134 L, Potassium 4.1, Chloride 100, Carbon Dioxide 32 H, Anion Gap 6.1, BUN 41 H, Creatinine 1.80 H, Estimated Creat Clear 48, Estimated GFR 37 L, Est GFR ( Amer) 45 L, Glucose 153 H, Calcium 8.1 L, Total Bilirubin 0.4, AST 68 H, ALT 33, Alkaline Phosphatase 687 H, Total Protein 5.4 L, Albumin 2.8 L, Globulin 2.6, Albumin/Globulin Ratio 1.1 03/16/21 03:10: APTT 81.4 H* D 03/16/21 03:10: ESR 36 H 03/16/21 03:10: C-Reactive Protein 103.5 H 03/16/21 03:10: Sodium 135 L, Potassium 4.3, Chloride 101, Carbon Dioxide 31 H, Anion Gap 7.3, BUN 40 H, Creatinine 1.70 H, Estimated Creat Clear 51, Estimated GFR 40 L, Est GFR ( Amer) 48 L, Glucose 87 D, Calcium 8.4, Total Bilirubin 0.6, AST 61 H, ALT 36, Alkaline Phosphatase 720 H, Total Protein 5.8 L, Albumin 3.0 L, Globulin 2.8, Albumin/Globulin Ratio 1.1 03/16/21 06:27: POC Glucose 80 03/16/21 08:05: APTT 65.7 H* D 03/16/21 08:05: WBC 8.8, RBC 4.20 L, Hgb 12.4 L, Hct 40.3 L, MCV 95.8
[2021-03-16 12:11] LABS: POC Glucose,Bedside 71 (70-110)
--- NOTE | 2021-03-16 13:15 | P.PN_ITS ---
[facility] Anesthesia Checklist - Patient Identification Patient Identification: Arm Band - Structural Data Admitted From: Inpatient Planned Operative Procedure/s: 5th toe amputation Consent for Planned Operative Procedure(s) Verified: Yes - NPO Status Verified Time NPO: 00:00 - Additional verifications Anesthesia Reactions: No Hx Blood Transfusions: No Blood Transfusion Reaction: No - Airway Assessment C-Spine Mobility Assessed: Yes TMJ Mobility Assessed: Yes Dentition: Edentulous - Neurological Assessment Level of Consciousness: Awake Hx Seizures: No Numbness or tingling in extremities: No - Anesthesia Plan Anesthesia Risk discussed: Yes Anesthesia Plan: Verified ASA Class: III Anesthesia Type: General [facility] History I have reviewed the patient's past medical history: Yes Medical History: Reports:: Congestive Heart Failure, Chronic Obstructive Pulmonary Disease (COPD), Diabetes Mellitus Type 2, Hyperlipidemia, Hypertension, Lung Disease Denies:: Cancer, Diabetes Mellitus Type 1, Internal Pacemaker, MRSA, Seizures *Have you ever received a pneumonia vaccine?: Yes *Have you received a flu vaccine this season?: Yes Other Medical History: Reports: Other (Gout). Denies: Blood Transfusion Reaction Anesthesia experience/problems:: None Laterality Cases: Bilateral: Tonsillectomy Other Surgeries: No: Pacemaker Amputation: No Fractures: No - *Social History Last grade of school completed: High school graduate Smoking Status: Former smoker Tobacco Type: cigarettes Smoking End Date: 2004 Alcohol Intake: never Substance Use Type: denies use *Occupational Status:: retired Housing: house Household Members: spouse *Travel in the last 8 weeks: None Family Hx:: Heart Attack
[2021-03-16 14:32] LABS: CATHL Activated Clotting Time 262 SEC (74-125)
--- NOTE | 2021-03-16 15:08 | XR_ITS ---
PROCEDURE: XR FOOT RT MIN 3V CLINICAL INDICATION: Post op amp COMPARISON: CR XR FOOT RT MIN 3V from 03/16/2021 FINDINGS: Status post amputation at the PIP joint of the 5th toe. Bandage artifact is present. There is good alignment. The joint spaces are well-preserved. No significant degenerative/arthritic changes. No erosive changes evident. Other findings:None. IMPRESSION: Status post amputation at the PIP joint of the 5th toe Dictated by: Piter Uribe MD 03/16/2021 16:01 Piter Uribe MD in OV 03/16/2021 16:01
--- NOTE | 2021-03-16 15:09 | HMH.ANESI ---
[facility] Anesthesia Record Part I Intake, IV Amount: 500 Estimated blood loss (mL): 0 Urine output (mL): 0 Blood Pressure: 125/58 SaO2: 96 Pulse Rate: 56 Respiratory Rate: 12 Temperature: 97.6 F Patient is:: Awake, Stable Stable to PACU at:: 15:05
--- NOTE | 2021-03-16 15:10 | HMH.OPNOTE ---
Date of procedure: 03/16/21 Pre-op Diagnosis:: 1. Right 5th ischemic toe 2. Right 5th toe gangrene 3. Right diabetic ulcer 5th toe 4. Gout Post-op Diagnosis:: Same Procedure performed:: 1. Right partial 5th toe amputation Surgeon:: Leia Morocho DPM [employer]NANCE WORKER:: Rakesh Allen Anesthesia: GETA Estimated blood loss (mL): 5 Clinical Note:: Patient is a 75-year-old diabetic male who was admitted for critical limb ischemia. He had a run off today 03/16/2021 with cardiology. Patient reports ischemic changes to the right fifth toe for over 2 weeks now. He does have a history of gout. He denies any purulent drainage. Patient reports pain localized to the tip of the fifth toe. Concern for osteomyelitis of the distal fifth toe. We discussed conservative versus surgical treatment options. Conservative treatment options include local wound care, oral and IV antibiotics, change in shoe wear, taping/padding, and off-loading. Discussed that patient would benefit from a wider and deeper shoe wear to accommodate the deformity. We discussed surgical intervention for amputation of the fifth toe. Patient understands that there is a chance that the toes can migrate to fill the gap or the foot may change shape after surgery. Patient also understands that they could have wound healing complications including delayed healing and infection. We discussed that if the wound does not heal, it is possible that they may need a more proximal amputation and could result in further loss of digits, loss of partial foot or loss of leg. We discussed the risks and benefits in great detail. Other surgical risks include: prolonged pain and swelling, further infection requiring oral or IV antibiotics, delay in healing of soft tissue or bone, nerve or blood vessel damage, CRPS/RSD, DVT, anesthesia complications, and even . All questions answered. Patient verbalized understanding. Consent obtained. Operative findings:: Right fifth toe ischemic gangrenous changes to the distal toe tip. Skin sloughing with the toenail partially avulsed off the nail bed. Toe has a purplish blackish discoloration. Distal phalanx was soft and yellow in appearance. Middle phalanx had cortical changes and sclerosis noted with some osteopenia. The proximal phalanx head was intact with no obvious signs of osteomyelitis. No purulence, odor or drainage noted. Operative note:: On this date and time patient was deemed an appropriate surgical candidate. With informed consent signed, the patient was taken to the operating theater. The patient was positioned supine. General anesthesia was induced. No tourniquet used. Ancef 2g IV infused. Right partial 5th toe/digit amputation: The right lower extremity was prepped and drapped in normal sterile fashion. Attention was directed to the fifth toe where ischemic gangrenous changes were noted to the distal toe tip. The toenail was partially avulsed off the nail bed. There is skin sloughing of the distal and middle phalanx. The skin proximal to the fifth MPJ was intact with no sloughing or blistering noted. A fish mouth incision was mapped out. Utilizing a 15 blade dissection was carried down sharply to the level of the 5th distal phalanx bone around the 5th DIPJ which was disarticulated from the middle phalanx. The distal phalanx bone was soft and crumbly and had a slight malodor to it. The distal toe including skin, subq, deep fascia, toenail, and distal phalanax bone was sent for bone/tissue culture. The middle phalanx had some cortical erosions and sclerosis noted. It was disarticulated from the PIP J and was sent for bone biopsy for pathology. Attention was then directed to the proximal phalanx. The head was intact with no cortical erosions, discoloration or obvious signs of osteomyelitis. Next bacitracin irrigation was used to flush the wound. The wound was reexplored and no further signs of infection noted. Bleeding controlled. No vessels ligated with electrocautery or t
[2021-03-16 16:48] LABS: POC Glucose,Bedside 115 (70-110)
--- NOTE | 2021-03-16 18:27 | PC.NURSE ---
Pt has slept majority of the time since being back up to the floor. Pt has required o2 at times while being asleep but is currently on RA. Pt has reported no pain this shift. No other acute changes or complaints. Will continue to monitor.
[2021-03-16 21:23] LABS: POC Glucose,Bedside 176 (70-110)
[2021-03-17] VITALS: BP 158/56; PULSE 56; RESP 19; TEMP 36.7; O2SAT 91
[2021-03-17 04:00] VITALS: BP 124/61; PULSE 55; RESP 17; TEMP 36.5; O2SAT 94
[2021-03-17 05:20] LABS: POC Glucose,Bedside 103 (70-110)
[2021-03-17 05:48] VITALS: BMI 28.1
[2021-03-17 06:37] LABS: Basophils # 0.1 K/mm3 (0-0.2); Basophils % 0.7 % (0.1-2.0); Eosinophils # 0.5 K/mm3 (0.0-0.4); Eosinophils % 5.6 % (0.1-12.0); Hemoglobin 11.8 g/dL (14.1-18.0); Lymphocytes # 1.4 K/mm3 (0.7-4.5); Lymphocytes % 15.6 % (10-50); Mean Corpuscular HGB Conc 30.2 g/dL (31.8-35.4); Mean Corpuscular Hemoglobin 29.8 pg (27.0-31.2); Mean Corpuscular Volume 98.6 fl (80-94); Monocytes # 0.8 K/mm3 (0.1-1.0); Monocytes % 8.7 % (1.7-9.3); Neutrophils # 6.3 K/mm3 (1.8-7.8); Neutrophils % 69.5 % (37.0-80.0); Platelet Count 205 K/mm3 (142-424); Red Blood Count 3.95 M/mm3 (4.60-6.20); White Blood Count 9.1 K/mm3 (4.8-10.8)
[2021-03-17 06:44] LABS: Chloride 104 mmol/L (98-107); Potassium 4.6 mmoL/L (3.5-5.1); Sodium 137 mmol/L (136-145)
[2021-03-17 06:47] LABS: Anion Gap 7.6 mEq/L (5-15); Blood Urea Nitrogen 34 mg/dl (9-20); Carbon Dioxide 30 mmol/L (22.0-30.0); Creatinine Clearance Estimated 44 mL/min (50-200); Estimated Glomerular Filt Rate 33 ml/min (>60); GFR (African American) 40 ML/MIN (>60)
[2021-03-17 06:48] LABS: Calcium 7.8 mg/dl (8.4-10.2); Glucose 126 mg/dl (74-100)
--- NOTE | 2021-03-17 07:58 | HMH.ORTHPN ---
Subjective Date: 03/17/21 Time: 07:35 Principal diagnosis: PAD, non-healing ulcer Interval history: Patient resting comfortably sitting up eating breakfast. He denies nausea/vomiting, fever/chills, shortness of breath and chest pain. Patient reports pain to the right foot, but has improved. PN: Obj Ex Vital signs: Temp Pulse Resp BP Pulse Ox 97.7 F 55 L 17 124/61 94 L 03/17/21 04:00 03/17/21 04:00 03/17/21 04:00 03/17/21 04:00 03/17/21 04:00 - Constitutional no acute distress - Routine HEENT Exam Head: Present: normocephalic Eye: Present: EOMI ENT: Present: mucous membranes moist - Routine Respiratory Exam Absent: respiratory distress - Routine Abdominal Exam Present: soft - Routine Extremities Exam Present: pulses intact, amputation (Right fifth partial toe amputation) - Routine Skin Exam Present: wounds (Right fifth toe amputation site has sutures clean dry and intact. Plantar skin appears raw secondary to removing skin sloughing and blistering yesterday. No black ischemic toe noted. No ascending cellulitis, purulent drainage or malodor noted.) - Routine Neurological Exam Present: alert, oriented X3 Progress Note: A&P (1) PAD (peripheral artery disease) Status: Chronic (2) Nonhealing ulcer of right lower extremity Status: Acute (3) Decreased pedal pulses Status: Acute (4) Diabetes mellitus Status: Acute (5) Discoloration of skin Status: Acute (6) HLD (hyperlipidemia) Status: Acute (7) HTN (hypertension) Status: Acute (8) Mild aortic stenosis by prior echocardiogram Status: Acute (9) CKD (chronic kidney disease) stage 3, GFR 30-59 ml/min Status: Chronic (10) Gout Status: Acute (11) Ischemic ulcer of toe of right foot Status: Acute Assessment and Plan for All Diagnoses:: 03/16/21, s/p right partial 5th ray amputation POD #1 Labs, 03/15/21: wbc 9.6, glucose 153, creatinine 1.8, gfr 37 Labs, 03/16/21: wbc 8.8, esr 36, crp 103.5, glucose 87, creatinine 1.7, gfr 40 Overall the right fifth toe is stable with less discoloration. No new gangrenous changes. Skin cleansed with Betadine. A new Betadine soaked gauze dry sterile dressing was applied to the right foot. Educated the patient on gout, diabetes and routine foot care. Plan: Patient is to maintain dressing clean dry and intact. Continue antibiotics: Clinda 900mg IV x 3 doses. Recommend oral antibiotics x10-14 days at discharge. Partial weight bearing to the right lower extremity with DME assistance (post op shoe, walker). Plan for follow up with Podiatry in one week, 03/23/21 and 03/31/21. Dressing will need to be changed. Okay for HHC to change 2-3 times weekly. If no HHC services, patient will need supplies for self dressing changes at home. Patient does live alone and will be better for him to get some services to assist. HHC Orders: 2-3 times weekly dressing changes -Cleanse the foot with saline or skin seed cleaner operator. Dry thoroughly. Apply Betadine soaked gauze to incision site followed by dry 4x4's, Norberto/Kerlix, secure with tape or loose [place]on bandage. -Avoid tight compression due to recent run-off, stenting and PAD.
[2021-03-17 08:00] VITALS: BP 141/55; PULSE 61; RESP 18; TEMP 36.5; O2SAT 97
--- NOTE | 2021-03-17 08:43 | HMH.DCSUM ---
General - General Admission date:: 03/15/21 Discharge date: 03/17/21 HPI HPI: 75 y/o male with 14 days of pain in his right small toe. Seen in our office today due to concern from the patient that he was having a gout flare with toe pain. He describes a throbbing pain in the tip of his small toe with occasional shooting pain every few minutes. The toe has turned purple and the pain is worsening. The pain keeps him from sleeping at night and he describes it as the worst pain he has ever felt. He also describes the arch of his foot as uncomfortable but not painful or numb. Pt is not aware of ever taking colchicine for his gout flares or for this recent episode of pain. He has been taking norco without relief. Denies claudication symptoms. Denies history of blood clots or recent cardiac procedures. Smoked 1.5 ppd previously but quit 10-15 years ago. Mr. Crowder was sent to cardiology office from our office. Concern for weak pulses in foot and ischemic toe. Cardiology recommended inpatient management and initiation of heparin drip. Patient admitted overnight with plan for runoff study of right lower extremity tomorrow. Of note echocardiogram obtained in October shows normal EF with mild aortic stenosis, aortic valve area of 1.5 cm?. Patient denies any chest pain, nausea, vomiting. Does complain of constipation. No fever, cough, shortness of breath. No pain in left leg or foot. 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 Aspirin and Plavix 2. LDL less than 55 3. Physical therapy 4. Due to patient's creatinine of 1.7 I would recommend renal duplex to evaluate for renal artery stenosis 5. Because of patient's severe peripheral artery disease I would recommend a cardiac ischemic work-up as his pretest likelihood for severe coronary artery disease is high 6. The right common femoral artery stenosis is densely calcified and looks similar to the above right popliteal artery disease. If patient develops additional right leg ischemia the right common femoral artery would be best revascularized with right common femoral artery endarterectomy due to the dense calcification, location of the disease inside the common femoral artery, and the less than ideal area for stent placement. Electronically signed by : Kenneth Hollins, 03/16/2021 10:51:10 After revascularization procedure was completed patient was subjected to podiatry evaluation and the fifth toe of the right foot was removed without complications. Tolerated the procedure well. This morning the patient has much less pain, has expected postsurgical pain but vascular pain is much improved. He is eating and drinking well and is ready for discharge both for his report and for podiatry consultation. Patient will be discharged home on antibiotics, pain medication, stool softeners, follow-up with me in 1 week and with podiatry as scheduled. Of note patient will require home health for dressing changes, PT, balance evaluation and home safety evaluation. Please note [id number] evaluation was done today and patient cannot leave his house without a great deal of pain and difficulty. Objective Vital signs: Temp Pulse Resp BP Pulse Ox 97.7 F 55 L 17 124/61 94 L 03/17/21 04:00 03/17/21 04:00 03/17/21 04:00 03/17/21 04:00 03/17/21 04:00 no acute distress - *Routine HEENT Exam Head: Present: normocephalic Eye: Present: EOMI, PERRL ENT: Present: mucous membranes moist - *Routine Neck Exam Present: suppl
--- NOTE | 2021-03-17 09:04 | P.PN_ITS ---
Subjective Date: 03/17/21 Time: 09:04 Principal diagnosis: PAD, non-healing ulcer Interval history: 75-year-old white male in bed in no acute distress. Pain of the right foot is greatly improved compared to admission. Denies any chest pain, pressure or tightness. Exam Vital signs and Labs for Last 24 Hours: Temp Pulse Resp BP Pulse Ox 97.7 F 55 L 17 124/61 94 L 03/17/21 04:00 03/17/21 04:00 03/17/21 04:00 03/17/21 04:00 03/17/21 04:00 Laboratory Results - last 24 hr 03/16/21 10:04: Activated Clotting Time 262 H* 03/16/21 11:54: POC Glucose 71 03/16/21 16:39: POC Glucose 115 H 03/16/21 21:03: POC Glucose 176 H 03/17/21 05:09: POC Glucose 103 03/17/21 06:13: Sodium 137, Potassium 4.6, Chloride 104, Carbon Dioxide 30, A nion Gap 7.6, BUN 34 H, Creatinine 2.00 H, Estimated Creat Clear 44, Estimated GFR 33 L, Est GFR ( Amer) 40 L, Glucose 126 H, Calcium 7.8 L 03/17/21 06:13: WBC 9.1, RBC 3.95 L, Hgb 11.8 L, Hct 39.0 L, MCV 98.6 H, MCH 29.8, MCHC 30.2 L, RDW 14.0, Plt Count 205, MPV 10.0, Neut % (Auto) 69.5, Lymph % (Auto) 15.6, [place] % (Auto) 8.7, Eos % (Auto) 5.6, Baso % (Auto) 0.7, Neut # (Auto) 6.3, Lymph # (Auto) 1.4, [place] # (Auto) 0.8, Eos # (Auto) 0.5 H, Baso # (Auto) 0.1 I & O for Last 24 hours: Intake & Output 03/14/21 03/15/21 03/16/21 03/17/21 11:59 11:59 11:59 11:59 Intake Total 2549 / 2549 500 / 500 Output Total 450 / 450 200 / 200 Balance 2098 300 / 300 Weight 203 lb 2 oz 208 lb 1 oz - *Routine Respiratory Exam Present: CTA bilaterally - *Routine Cardiovascular Exam Present: RRR - *Routine Extremities Exam Absent: cyanosis, clubbing, edema Comments: Right foot is wrapped and not unwrapped. - *Routine Neurological Exam Present: alert, oriented X3 Progress Note: A&P (1) PAD (peripheral artery disease) Status: Chronic (2) Nonhealing ulcer of right lower extremity Status: Resolved (3) Decreased pedal pulses Status: Acute (4) Diabetes mellitus Status: Chronic (5) Discoloration of skin Status: Chronic (6) HLD (hyperlipidemia) Status: Acute (7) HTN (hypertension) Status: Acute (8) Mild aortic stenosis by prior echocardiogram Status: Acute (9) CKD (chronic kidney disease) stage 3, GFR 30-59 ml/min Status: Chronic (10) Gout Status: Acute (11) Ischemic ulcer of toe of right foot Status: Acute Assessment and Plan for All Diagnoses:: 1. PAD with right fifth toe nonhealing ulcer, status post popliteal stenting, continue aspirin and Plavix. After 1 month we will discontinue Plavix and continue aspirin with plans to institute Xarelto 2.5 mg twice daily thereafter. 2. Plan to further evaluate for coronary artery disease as an outpatient. 3. Hypertension, controlled 4. CKD, stage III, stable 5. Hyperlipidemia, continue statin therapy 6. Diabetes mellitus
[2021-03-17 09:06] VITALS: BP 137/88; PULSE 50; TEMP 36.3
--- NOTE | 2021-03-17 09:06 | P.PN_ITS ---
[facility] Anesthesia Record Part II Discharge Time: 15:35 Destination: Medical Surgical Department PACU nurse assessment reviewed?: Yes Patient Condition:: Good Anesthesia Complications:: None Swallowing reflex intact?: Yes Cyanosis?: No Blood Pressure: 137/88 Pulse Rate: 50 Temperature: 97.3 F Mental Status: Alert & Oriented Pain level:: 0 Nausea and/or vomitting:: None Intake, IV Amount: 0
[2021-03-17 09:37] LABS: Alanine Aminotransferase 30 U/L (12-78); Albumin Level 2.6 g/dl (3.5-5.0); Alkaline Phosphatase 507 U/L (38-126); Aspartate Amino Transferase 67 U/L (17-59); Bilirubin,Direct 0.4 mg/dl (0.0-0.4); Bilirubin,Total 0.4 mg/dl (0.2-1.3); Total Protein,Serum 5.1 g/dl (6.3-8.2)
--- NOTE | 2021-03-17 09:55 | PC.NURSE ---
Pt would benefit from a rolling walker d/t instability and mobility issues from surgery.
--- NOTE | 2021-03-17 10:29 | SW/DCPLANNER ---
RECEIVED REFERRAL FOR THIS PATIENT FOR HOME HEALTH SERVICES/DSG CHANGES FOR THIS PATIENT... PATIENT HAS CHOSE PERSONAL TOUCH OUT OF [facility] TO BE HIS PROVIDER HE ALSO NEEDS A ROLLING WALKER FOR GAIT STABILITY... HE IS DISCHARGING HOME TODAY WITH PARTIAL WEIGHT BEARING STATUS AND TO FOLLOW UP WITH DR GILLILAND AND DR PORTILLO IN THE OFFICE NEXT WEEK...
--- NOTE | 2021-03-17 10:53 | HMH.PHACLD ---
Reddy Crowder has received discharge medication counseling on the following medications: PATIENT RECEIVED A PERIPHERAL STENT, BETA-FRANCISCA AND MADHU/ARB ARE NOT INDICATED. CONTINUED MEDICATIONS: PRAVASTATIN NEW MEDICATIONS: ASPIRIN, PLAVIX PATIENT VERBALIZED UNDERSTANDING AND DID NOT HAVE ANY QUESTIONS.
--- NOTE | 2021-03-17 12:12 | CA_ITS ---
APPROVED REPORT Client Delivery Specialist: Criss Lomas RVT Study Quality: Good Indications: renal insufficiency Risk Factors Hypertension Diabetes Renal Artery Doppler Origin (R) 129.1/ cm/sec Mid (R) 161.8/ cm/sec Distal (R) 144.4/ cm/sec Renal Aorta Ratio (R) 0.00 Segmental A. (R) 71.3/12.6 cm/sec RI: 0.82 Segmental A. Sup (R) 68.5/7.0 cm/sec Segmental A. Mid (R) 47.5/4.2 cm/sec Segmental A. Inf (R) 71.3/12.6 cm/sec Mid (L) 160.5/ cm/sec Distal (L) 113.4/ cm/sec Renal Aorta Ratio (L) 0.00 Segmental A. (L) 75.2/14.2 cm/sec RI: 0.81 Segmental A. Sup (L) 40.3/6.5 cm/sec Segmental A. Mid (L) 75.2/14.2 cm/sec Segmental A. Inf (L) 49.0/12.0 cm/sec Renal Measurements Kidney Size (R) 10.5x6.7 cm Cortical Thickness (R) 1.3 cm Kidney Size (L) 12.8x9.3 cm Findings Study suggests no evidence of stenosis of the bilateral renal arteries. Left proximal renal artery was not visualized. There is a 3.4 X 3.2 cm cyst lower pole of left kidney. There is a 2.5 X 2.7 cyst mid pole left kidney. There is a 2.5 X 2.5 cm cyst mid pole right kidney. There is a 2.6 X 2.3 cm cyst lower pole right kidney. Cholelithiasis seen. There is multiple hyperechoic lesions seen in the left lobe of the liver. Futher testing is needed. Small amount of ascites seen around liver. Conclusion Study suggests no evidence of stenosis of the bilateral renal arteries. Left proximal renal artery was not visualized. There is a 3.4 X 3.2 cm cyst lower pole of left kidney. There is a 2.5 X 2.7 cyst mid pole left kidney. There is a 2.5 X 2.5 cm cyst mid pole right kidney. There is a 2.6 X 2.3 cm cyst lower pole right kidney. Cholelithiasis seen. There is multiple hyperechoic lesions seen in the left lobe of the liver. Futher testing is needed. Suggest CT abdomen without and with contrast with hemangioma protocol Small amount of ascites seen around liver. Critical Notification Physician Notified Date: 03/17/2021 Time: 09:03 Physician Name: Mateo Bruno Electronically signed by : Piter Uribe MD 03/17/2021 15:22:07
== END 2021-03-17 11:50 | disposition home health service (06) ==
PROVIDERS: Internal Medicine; Physician Assistant; Podiatrist; Admitting Provider Internal Medicine Adolescent Medicine; PCP Internal Medicine Adolescent Medicine; Visit Provider Internal Medicine Adolescent Medicine
DX: I70.268 Atherosclerosis of native arteries of extremities with gangrene, other extremity (principal); I70.235 Atherosclerosis of native arteries of right leg with ulceration of other part of foot; N18.32 Chronic kidney disease, stage 3b; E11.52 Type 2 diabetes mellitus with diabetic peripheral angiopathy with gangrene; E11.621 Type 2 diabetes mellitus with foot ulcer; L97.516 Non-pressure chronic ulcer of other part of right foot with bone involvement without evidence of necrosis; E11.22 Type 2 diabetes mellitus with diabetic chronic kidney disease; I13.0 Hypertensive heart and chronic kidney disease with heart failure and stage 1 through stage 4 chronic kidney disease, or unspecified chronic kidney disease; I77.1 Stricture of artery; I50.9 Heart failure, unspecified; Z79.4 Long term (current) use of insulin; Z79.899 Other long term (current) drug therapy; Z88.8 Allergy status to other drugs, medicaments and biological substances
CPT/HCPCS: 28825; 36415; 37226; 73630; 80048; 80053; 80076; 82962; 85025; 85347; 85651; 85730; 86140; 87070; 87077; 87186; 87205; 87581; 87633; 87798; 88305; 88311; 93923; 93976; 99152; 99153; C1725; C1760; C1766; C1769; C1876; C1894; G0378; J1644; J2405; Q9966

== ENCOUNTER → 2021-03-30 12:43 | Outpatient (CLI) | payer MEDICARE, SELFPAY ==
[2021-03-30 13:17] LABS: Basophils # 0.2 K/mm3 (0-0.2); Basophils % 0.8 % (0.1-2.0); Eosinophils # 0.3 K/mm3 (0.0-0.4); Eosinophils % 1.4 % (0.1-12.0); Hematocrit 36.6 % (42.0-52.0); Hemoglobin 11.5 g/dL (14.1-18.0); Lymphocytes # 1.6 K/mm3 (0.7-4.5); Lymphocytes % 7.4 % (10-50); Mean Corpuscular HGB Conc 31.4 g/dL (31.8-35.4); Mean Corpuscular Hemoglobin 29.7 pg (27.0-31.2); Mean Corpuscular Volume 94.6 fl (80-94); Mean Platelet Volume 10.1 fl (7.4-10.4); Monocytes # 1.5 K/mm3 (0.1-1.0); Monocytes % 6.8 % (1.7-9.3); Neutrophils # 18.5 K/mm3 (1.8-7.8); Neutrophils % 83.5 % (37.0-80.0); Platelet Count 187 K/mm3 (142-424); Red Blood Count 3.86 M/mm3 (4.60-6.20); Red Cell Distribution Width 15.1 % (11.5-17.5); White Blood Count 22.2 K/mm3 (4.8-10.8)
[2021-03-30 13:32] LABS: MANUAL DIFFERENTIAL MANUAL DIFFERENTIAL (MANUAL DIFF)
[2021-03-30 14:06] LABS: Eosinophils % 1 % (0-3); Lymphocytes % 9 % (10-50); Monocytes % 14 % (2-9); Neutrophils % 76 % (42-76); Platelet Estimate Normal; Total Cells Counted 100
[2021-03-30 14:07] LABS: Hypochromasia 2+; Macrocytosis 1+
[2021-03-30 14:10] LABS: Chloride 98 mmol/L (98-107); Potassium 5.7 mmoL/L (3.5-5.1); Sodium 137 mmol/L (136-145)
[2021-03-30 14:13] LABS: Alanine Aminotransferase 54 U/L (12-78); Albumin Level 3.2 g/dl (3.5-5.0); Albumin/Globulin Ratio 1.2 (1.1-1.8); Alkaline Phosphatase 1198 U/L (38-126); Anion Gap 18.7 mEq/L (5-15); Aspartate Amino Transferase 159 U/L (17-59); Bilirubin,Total 0.7 mg/dl (0.2-1.3); Calcium 8.5 mg/dl (8.4-10.2); Carbon Dioxide 26 mmol/L (22.0-30.0); Estimated Glomerular Filt Rate 9 ml/min (>60); GFR (African American) 11 ML/MIN (>60); Globulin 2.7 g/dL (1.3-3.2); Total Protein,Serum 5.9 g/dl (6.3-8.2)
[2021-03-30 14:30] LABS: Blood Urea Nitrogen 89 mg/dl (9-20)
[2021-03-30 14:31] LABS: Glucose 31 mg/dl (74-100)
[2021-03-30 18:04] LABS: Erythrocyte Sedimentation Rate 13 mm/hr (0-20)
== END ==
PROVIDERS: Visit Provider Nurse Practitioner
DX: Z98.890 Other specified postprocedural states (principal); I35.0 Nonrheumatic aortic (valve) stenosis
CPT/HCPCS: 80053; 85007; 85025; 85651; 86140